=== PATIENT | female | born 1990 | race Hispanic/Latino ===

== ENCOUNTER 2018-04-19 16:57 | Emergency (ER) | payer OTHER ==
[2018-04-19] MEDS ORDERED: IBUPROFEN 600 MG TABLET ONE (17:28)
== END 2018-04-19 18:12 | disposition home or self-care (01) ==
LOC: EDH 16:57
DX: L08.9 Local infection of the skin and subcutaneous tissue, unspecified (principal); M25.562 Pain in left knee; Z89.512 Acquired absence of left leg below knee